=== PATIENT | male | born 1995 | race Caucasian/White ===

== ENCOUNTER 2016-07-29 01:46 | Emergency (ER) | payer OTHER ==
[~2016-07-29] VITALS: Ht 177.8 cm; Wt 84.0 kg
[~2016-07-29 01:46] MED LIST: ACET500C5 PO; AMOX125S3; NASO17 NS
[2016-07-29 01:59] VITALS: Ht 177.8 cm; Wt 84.0 kg
[2016-07-29] MEDS ORDERED: HYDROCODONE/APAP (5/325) TAB PO ONE (02:30)
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
--- NOTE | 2016-07-29 04:11 | RADRPT ---
PROCEDURE: XR hand. CLINICAL INDICATION: Trauma TECHNIQUE: AP, lateral and oblique views of the left hand was obtained. COMPARISON: There are no similar studies submitted for comparison. FINDINGS: There is normal bone mineralization. There is an acute fracture of the mid to distal metacarpal diap hysis with mild palmar angulation. No osseous erosions are identified. The joint spaces are within n ormal limits. There is overlying soft tissue swelling. IMPRESSION: Acute fifth metacarpal fracture. RPTAT: HIKT .Gm Erwin MD, MD Date Time Electronically viewed and signed by .mG Erwin MD, on 07/29/2016 04:11 .T/
[2016-07-29] MEDS ORDERED: HYDR-906 PO (04:20)
[2016-07-29] MEDS ORDERED: IBUP-1542 PO (04:20)
== END 2016-07-29 04:39 | disposition home or self-care (01) ==
LOC: FTE 01:46
DX: S62.307A Unspecified fracture of fifth metacarpal bone, left hand, initial encounter for closed fracture (principal); F17.210 Nicotine dependence, cigarettes, uncomplicated; Y04.0XXA Assault by unarmed brawl or fight, initial encounter; Y92.9 Unspecified place or not applicable
CPT/HCPCS: 29125; 73130; Z7502; Z7610